=== PATIENT | male | born 1985 | race Caucasian/White ===

== ENCOUNTER 2023-06-06 02:16 | Observation (INO) | payer MEDICAID, SELFPAY ==
[2023-06-06] VITALS (19 sets, daily range): BP systolic 104–123; BP diastolic 64–91; PULSE 56–79; RESP 11–20; TEMP 36.7–36.8; O2SAT 79–98; BMI 38.3; BMI 39.3
--- NOTE | 2023-06-06 02:31 | ED_ITS ---
HPI - Overdose General Chief Complaint: Overdose Stated Complaint: SUICIDAL Time Seen by Provider: 06/06/23 02:27 History of Present Illness HPI Narrative: patient presents after overdose. 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 States he became upset because his female partner did not come home with him tonight. Denies past episodes of suicide. Still feels suicidal. complaint: Reports intentional overdose Onset (ago): hour(s) Related Data Home Medications Medication Instructions Recorded Confirmed dulaglutide 0.75 mg/0.5 mL 0.75 mg subcut .weekly 06/06/23 06/06/23 subcutaneous pen injector (Trulicity) escitalopram oxalate 10 mg tablet 10 mg PO DAILY 06/06/23 06/06/23 losartan 100 mg tablet 100 mg PO DAILY 06/06/23 06/06/23 metformin 500 mg tablet,extended 500 mg PO DAILY 06/06/23 06/06/23 release 24 hr metoprolol tartrate 50 mg tablet 50 mg PO Q12H 06/06/23 06/06/23 Allergies Allergy/AdvReac Type Severity Reaction Status Date / Time propoxyphene Allergy Unknown Verified 06/06/23 02:25 [From Tacho] Review of Systems ROS Status of ROS 10 or more systems reviewed and unremarkable except as noted in history and below PFSH PFSH Social History Smoking status: Former smoker Exam Constitutional Vital Signs, click to edit/add: Last Vital Signs Pulse 71 06/06/23 03:20 Resp 15 06/06/23 03:20 BP 123/91 H 06/06/23 02:18 Pulse Ox 79 L 06/06/23 03:20 O2 Del Method Room Air 06/06/23 02:18 Common normals: no apparent distress, average body habitus, oriented x3, no limitations, healthy appearing and alert Eye Common normals: PERRL, EOMs intact bilaterally and conjunctivae normal Respiratory Common normals: normal respiratory effort, no retractions, no use of accessory muscles and clear to auscultation bilaterally Cardio Common normals: regular rate, regular rhythm, S1 normal heart sound and S2 normal heart sound GI Common normals: Normal to inspection, nondistended, normoactive bowel sounds p resent, soft to palpation and non-tender Extremity Common normals: normal to inspection, full ROM and normal capillary refill Neuro Common normals: oriented x3, CN's II-XII intact bilaterally, moves all extremities and no focal motor deficits Psych Appearance: grossly normal Course Vital Signs Vital signs: Vital Signs Pulse Rate 78 06/06/23 02:18 Respiratory Rate 16 06/06/23 02:18 Blood Pressure 123/91 H 06/06/23 02:18 Pulse Oximetry 96 06/06/23 02:18 Oxygen Delivery Method Room Air 06/06/23 02:18 Pulse Rate 71 06/06/23 03:20 Respiratory Rate 15 06/06/23 03:20 Blood Pressure 123/91 H 06/06/23 02:18 Pulse Oximetry 79 L 06/06/23 03:20 Oxygen Delivery Method Room Air 06/06/23 02:18 MDM - Overdose MDM Narrative Medical decision making narrative: patient presents after he alledgedly overdosed on over 100 50mg metoprolol pills because he was upset his did not come home with him. They were at a libertarian together. he was also drinking and she was reportedly not happy about this. His EKG demonstrates NSR with rate 63 on arrival . 2:45 minutes later his heart rate is 74 on the monitor. WBC, BMP are normal. Discussed with poison control who recommends observation for 6-8 hours. Discussed with the hospitalist who accepts the patient for observation admission. Patient will need mental health evaluation once he is cleared medically Lab Data Labs: Lab Results 06/06/23 Range/Units 02:30 WBC 7.2 (4.0-11.0) 10^3/uL RBC 7.01 H (4.70-6.10) 10^6/uL Hgb 13.6 L (14.0-18.0) g/dL Hct 43.8 (42.0-54.0) % MCV 62.5 L (80.0-94.0) fL MCH 19.4 L (25.9-34.0) pg MCHC 31.1 (29.9-35.2) g/dL RDW 19.9 H (11.0-15.0) % Plt Count 288 (150-450) 10^3/uL MPV 9.4 L (9.5-13.5) fL Neut % (Auto) 40.9 L (43.0-75.0) % Lymph % (Auto) 45.2 (20.5-60.0) % [place] % (Auto) 8.2 (1.7-12.0) % Eos % (Auto) 3.9 (0.9-7.0) % Baso % (Auto) 1.0 (0.2-2.0) % Neut # (Auto) 2.9 (1.4-6.5) 10^3/uL Lymph # (Auto) 3.3 (1.2-3.8) 10^3/uL [place] # (Auto) 0.6 (0.3-0.8) 10^3/uL Eos # (Auto) 0.3 (0.0-0.7) 10^3/uL Baso # (Auto) 0.1 (0.0-0.1) 10^3/uL Abs Immat Gran (auto) 0.06 H (0.00-0.03) 10^3/uL Imm/Tot Granulo (auto) 0.8 H (0.0-0.5) % Sodium 137 (136-145) mmol/L Potassium 3.6 (3.5-5.1) mmol/L Chloride 100 (98-107) mmol/L Carbon Dioxide 27.3 (21.0-32.0) mmol/L Anion Gap 13.3 BUN 12.0 (7.0-18.0) mg/dL Creatinine 1.05 (0.70-1.30) mg/dL Est GFR ( Amer) >60 (>=60) Est GFR (Non-Af Amer) >60 (>=60) BUN/Creatinine Ratio 11.4 Glucose 216 H (74-106) mg/dL Lactate 1.7 (0.4-2.0) mmol/L Calcium 8.6 (8.5-10.1) mg/dL Total Bilirubin 0.7 (0.2-1.0) mg/dL AST <5 L (15-37) U/L ALT <6 L (16-63) U/L Alkaline Phosphatase 91 (46-116) U/L Total Protein 7.9 (6.4-8.2) g/dL Albumin <3.4 L (3.4-5.0) g/dL Globulin 4.5 g/dL Albumin/Globulin Ratio 0.8 Salicylates <2.8 (<=19.9) mg/dL Acetaminophen <2.0 L (10.0-30.0) ug/mL Ethanol Quant 198 mg/dL Discharge Plan Discharge Chief Complaint: Overdose Clinical Impression: Drug overdose, Suicide attempt Patient Disposition: Admitted as Observation Prescriptions / Home Meds: No Action metoprolol tartrate 50 mg tablet 50 mg PO Q12H losartan 100 mg tablet 100 mg PO DAILY metformin 500 mg tablet extended release 24 hr 500 mg PO DAILY escitalopram oxalate 10 mg tablet 10 mg PO DAILY Trulicity 0.75 mg/0.5 mL pen injector 0.75 mg SUBCUT .weekly Referrals: KIMBERLY CRAIG [Primary Care Provider] - 1 week
--- NOTE | 2023-06-06 02:37 | ECG_ITS ---
[facility] Test Date: 2023-06-06 Pat Name: JENN HOLDEN Department: Room: - Gender: Male Jailer: : 1985 Requested By: KIMBERLY CRAIG Order Number: [id number] Reading MD: MOON SANDOVAL Measurements Intervals [place] Rate: 78 P: 49 NM: 186 QRS: 83 QRSD: 92 T: 30 QT: 368 QTc: 402 Interpretive Statements 1100 Sinus rhythm 9110 normal ECG No previous ECG available for comparison Electronically Signed On 06-06-2023 18:08:28 EDT by MOON SANDOVAL
[2023-06-06] MEDS: 0.9 % SODIUM CHLORIDE 1,000 ML 999 ML IV (02:40)
[2023-06-06 02:43] LABS: Basophils Absolute Auto 0.1 10^3/uL (0.0-0.1); Eosinophils Absolute Auto 0.3 10^3/uL (0.0-0.7); Eosinophils Percent Auto 3.9 % (0.9-7.0); Hematocrit 43.8 % (42.0-54.0); Hemoglobin 13.6 g/dL (14.0-18.0); Immature Granulocytes Abs Auto 0.06 10^3/uL (0.00-0.03); Immature Granulocytes Pct Auto 0.8 % (0.0-0.5); Lymphocytes Absolute Auto 3.3 10^3/uL (1.2-3.8); Lymphocytes Percent Auto 45.2 % (20.5-60.0); Mean Corpuscular HGB Conc 31.1 g/dL (29.9-35.2); Mean Corpuscular Hemoglobin 19.4 pg (25.9-34.0); Mean Corpuscular Volume 62.5 fL (80.0-94.0); Mean Platelet Volume 9.4 fL (9.5-13.5); Monocytes Absolute Auto 0.6 10^3/uL (0.3-0.8); Monocytes Percent Auto 8.2 % (1.7-12.0); Neutrophils Absolute Auto 2.9 10^3/uL (1.4-6.5); Neutrophils Percent Auto 40.9 % (43.0-75.0); Platelet Count 288 10^3/uL (150-450); Red Blood Count 7.01 10^6/uL (4.70-6.10); Red Cell Distribution Width 19.9 % (11.0-15.0); White Blood Count 7.2 10^3/uL (4.0-11.0)
[2023-06-06 02:53] LABS: Ethanol 198 mg/dL; Salicylate <2.8 mg/dL (<=19.9)
[2023-06-06 02:55] LABS: Acetaminophen <2.0 ug/mL (10.0-30.0)
[2023-06-06 02:58] LABS: Lactate/Lactic Acid 1.7 mmol/L (0.4-2.0)
[2023-06-06 03:04] LABS: Alanine Aminotransferase <6 U/L (16-63); Alkaline Phosphatase 91 U/L (46-116); Anion Gap 13.3; Aspartate Amino Transferase <5 U/L (15-37); BUN Creatinine Ratio 11.4; Bilirubin Total 0.7 mg/dL (0.2-1.0); Calcium 8.6 mg/dL (8.5-10.1); Carbon Dioxide 27.3 mmol/L (21.0-32.0); Chloride 100 mmol/L (98-107); Estimated GFR (African America >60 (>=60); Estimated GFR (Non-African Ame >60 (>=60); Glucose 216 mg/dL (74-106); Potassium 3.6 mmol/L (3.5-5.1); Sodium 137 mmol/L (136-145); Total Protein 7.9 g/dL (6.4-8.2)
[2023-06-06 03:05] LABS: Albumin Globulin Ratio 0.8; Albumin Level <3.4 g/dL (3.4-5.0); Globulin 4.5 g/dL
--- NOTE | 2023-06-06 03:29 | PC.NURSE ---
poison control called at 0214after EMS report. Patient took 100 25mg metoprolol 1 hour ago. Patient also had alcohol. Poison control advised to give charcoal if patient was alert and oriented, dont give if patient has MANAGER EQUITY depression. Labs recommendations were Acetaminophen, salicylate, etoh, UA drug screen, CMP, Hepatic function. EKG with continuous monitoring. Assess for hypotension, bradycardia, MANAGER EQUITY depression. Dr. Ortiz made aware. 0311 called poison control to give patient name, , and med list. They said they would check in in about an hour to get lab results.
--- NOTE | 2023-06-06 04:53 | PC.NURSE ---
Talked with poison control. States needs to observe for 6-8 hours. If he remains stable he can then speak withpsych. r aware
[2023-06-06 05:37] LABS: Basophils Absolute Auto 0.1 10^3/uL (0.0-0.1); Basophils Percent Auto 1.1 % (0.2-2.0); Eosinophils Absolute Auto 0.2 10^3/uL (0.0-0.7); Eosinophils Percent Auto 2.7 % (0.9-7.0); Hematocrit 39.1 % (42.0-54.0); Hemoglobin 12.3 g/dL (14.0-18.0); Immature Granulocytes Abs Auto 0.08 10^3/uL (0.00-0.03); Immature Granulocytes Pct Auto 1.2 % (0.0-0.5); Lymphocytes Absolute Auto 2.8 10^3/uL (1.2-3.8); Lymphocytes Percent Auto 41.9 % (20.5-60.0); Mean Corpuscular HGB Conc 31.5 g/dL (29.9-35.2); Mean Corpuscular Hemoglobin 19.9 pg (25.9-34.0); Mean Corpuscular Volume 63.2 fL (80.0-94.0); Mean Platelet Volume 9.4 fL (9.5-13.5); Monocytes Absolute Auto 0.5 10^3/uL (0.3-0.8); Monocytes Percent Auto 8.2 % (1.7-12.0); Neutrophils Percent Auto 44.9 % (43.0-75.0); Platelet Count 258 10^3/uL (150-450); Red Blood Count 6.19 10^6/uL (4.70-6.10); Red Cell Distribution Width 19.3 % (11.0-15.0); White Blood Count 6.6 10^3/uL (4.0-11.0)
[2023-06-06 05:49] LABS: Anion Gap 13.7; BUN Creatinine Ratio 11.7; Calcium 7.9 mg/dL (8.5-10.1); Chloride 105 mmol/L (98-107); Estimated GFR (African America >60 (>=60); Estimated GFR (Non-African Ame >60 (>=60); Glucose 242 mg/dL (74-106); Potassium 3.7 mmol/L (3.5-5.1); Sodium 139 mmol/L (136-145)
[2023-06-06] MEDS: LACTATED RINGER'S SOLUTION 1,000 ML 125 ML IV (06:46)
--- NOTE | 2023-06-06 08:10 | ECG_ITS ---
[facility] Test Date: 2023-06-06 Pat Name: JENN HOLDEN Department: Room: Gender: Male Import Export Manager: : 1985 Requested By: KIMBERLY CRAIG Order Number: [id number] Reading MD: MOON SANDOVAL Measurements Intervals [place] Rate: 69 P: 48 NC: 191 QRS: 69 QRSD: 94 T: 33 QT: 395 QTc: 424 Interpretive Statements SINUS RHYTHM Compared to ECG 06/06/2023 02:21:33 No significant changes Electronically Signed On 06-06-2023 18:09:03 EDT by MOON SANDOVAL
[2023-06-06] MEDS: ESCITALOPRAM 10 MG TABLET PO (09:18)
[2023-06-06] MEDS: ENOXAPARIN SODIUM 40 MG/0.4 ML SYRINGE SUBQ (09:18)
[2023-06-06 12:33] LABS: Amphetamine Screen Urine NEGATIVE (NEGATIVE); Benzodiazepines Screen Urine NEGATIVE (NEGATIVE); Cannabinoid Screen Urine NEGATIVE (NEGATIVE); Cocaine Screen Urine NEGATIVE (NEGATIVE); Methamphetamines Screen Urine NEGATIVE (NEGATIVE); Opiate Screen Urine NEGATIVE (NEGATIVE); Phencyclidine Screen Urine NEGATIVE (NEGATIVE); Tricyclic Antidepressant Urine NEGATIVE (NEGATIVE)
[2023-06-06 12:34] LABS: Barbiturates Screen Urine NEGATIVE (NEGATIVE); Buprenorphine Screen Urine NEGATIVE (NEGATIVE); Methadone Screen Urine NEGATIVE (NEGATIVE); Oxycodone Screen Urine NEGATIVE (NEGATIVE)
--- NOTE | 2023-06-06 13:47 | PM.HP ---
H&P: HPI History of Present Illness Chief complaint: Intentional overdose Narrative: HPI and Hospital Course: 37 y o male with no prior hx of suicide attempt came in after intentional overdose of his BB. He took about 100 pills of 50 mg Toprol that was prescribed for his HTN. He was admitted for observation and denies any active symptoms. Rest of his w/u is pretty unremarkable with no sig sig abnormality on CBC, CMP, EKG. He had normal tylenol/salicylate levels and negative UDS. He denies prior hx of MDD or suicide attempt. He is currently on Lexapro for SERENA and been using it for 2 years now. Poison control was contacted by ED and patient was recommended to be be monitor for 6-8 hours for clinical deterioration. Vitals are stable. Stable from medical pov for discharge. Will need to go to inpatient psych unit to ensure he is not at risk of self harm with recent intentional overdose. Admission Diagnosis: Intentional overdose of Beta albertina HTN T2 DM SERENA Alcohol abuse disorder Discharge Diagnosis as above Discharge status medically stable Review of Systems ROS Status of ROS 10 or more systems reviewed and unremarkable except as noted in history and below [facility] Medical History (Updated 06/06/23 @ 14:02 by Shaikh Eduardo MD) Surgical History Family History Mother Family history of CHF (congestive heart failure) Family history of diabetes mellitus Family history of hypertension Father Family history of cancer Social History Within the past year, how often did you have a drink containing alcohol: 4 or more times a week Within the past year, how many standard drinks containing alcohol did you have on a typical day: 10 or more Within the past year, how often did you have six or more drinks on one occasion: daily or almost daily Total score: 12 Score interpretation: A score of 4 or more indicates drinking is likely to affect patient's safety. Smoking status: Former smoker Non-prescribed substance use: denies use Previous occupational history: none Highest level of school completed/degree received: high school graduate Are you now , , , , never or living with a partner: living with partner In a typical week, how many times do you talk on the telephone with family, friends, or neighbors: 3 or more times per week How often do you get together with friends or relatives: 3 or more times per week How often do you attend congregational or zoroastrianism services: never Do you belong to any clubs or organizations such as congregational groups unions, fraternal or athletic groups, or school groups: no Total score: 2 Score interpretation: A score of greater than or equal to 2 indicates the lowest level of social isolation. Little interest or pleasure in doing things: not at all Feeling down, depressed, or hopeless: not at all Feel stressed/tense/nervous/anxious/difficulty sleeping: not at all Do you think of yourself as: straight/heterosexual Gender Identity: male Meds Home Medications and Allergies Home Medications Medication Instructions Recorded Confirmed Type dulaglutide 0.75 mg/0.5 mL 0.75 mg subcut .weekly 06/06/23 06/06/23 History subcutaneous pen injector (Trulicity) escitalopram oxalate 10 mg tablet 10 mg PO DAILY 06/06/23 06/06/23 History losartan 100 mg tablet 100 mg PO DAILY 06/06/23 06/06/23 History metformin 500 mg tablet,extended 500 mg PO DAILY 06/06/23 06/06/23 History release 24 hr metoprolol tartrate 50 mg tablet 50 mg PO Q12H 06/06/23 06/06/23 History Allergies Allergy/AdvReac Type Severity Reaction Status Date / Time propoxyphene Allergy Unknown Verified 06/06/23 02:25 [From Tacho] Exam Constitutional Vital Signs, click to edit/add: Last Vital Signs Temp 98.1 F 06/06/23 08:27 Pulse 70 06/06/23 11:54 Resp 16 06/06/23 08:27 BP 104/64 06/06/23 08:27 Pulse Ox 98 06/06/23 08:27 O2 Del Method Room Air 06/06/23 08:27 O2 Flow Rate 2 06/06/23 06:14 Documenting provider has reviewed patient's vital signs: yes Common normals: no apparent distress Nutritional appearance: obese HENMT Common normals: normocephalic and head/scalp atraumatic Respiratory Common normals: normal respiratory effort, no retractions, no use of accessory muscles and clear to auscultation bilaterally Effort & inspection: able to speak in complete sentences GI Common normals: Normal to inspection, nondistended, normoactive bowel sounds present, soft to palpation, non-tender and no hepatosplenomegaly Extremity Common normals: normal to inspection and full ROM Neuro Common normals: oriented x3, CN's II-XII intact bilaterally, moves all extremities, no focal motor deficits and no sensory deficits noted Psych Common normals: mental status grossly normal, thought process normal, cooperative, speech normal, activity/motor behavior normal, denies hallucinations and denies homicidal ideation Other: reports passive suicidal ideation Results Labs Labs: Short CBC 06/06/23 06/06/23 Range/Units 02:30 05:33 WBC 7.2 6.6 (4.0-11.0) 10^3/uL Hgb 13.6 L 12.3 L (14.0-18.0) g/dL Hct 43.8 39.1 L (42.0-54.0) % Plt Count 288 258 (150-450) 10^3/uL BMP 06/06/23 06/06/23 02:30 05:33 Sodium 137 139 Potassium 3.6 3.7 Chloride 100 105 Carbon Dioxide 27.3 24.0 BUN 12.0 11.0 Creatinine 1.05 0.94 Glucose 216 H 242 H Calcium 8.6 7.9 L Liver Function 06/06/23 Range/Units 02:30 Total Bilirubin 0.7 (0.2-1.0) mg/dL AST <5 L (15-37) U/L ALT <6 L (16-63) U/L Alkaline Phosphatase 91 (46-116) U/L Albumin <3.4 L (3.4-5.0) g/dL Assessment and Plan Assessment and Plan (1) Suicide attempt: Assessment and Plan: Intentional overdose with oral BB. Medically cleared for d/c Patient will need inpatient psych evaluation to ensure he is not at risk of self harm . (2) Alcohol abuse: Assessment and Plan: drinks about 12 cans of beers daily. No prior hx of alcohol withdrawal. Last drink was last night. No signs and symptoms of withdrawal on evaluation. Pt educated on alcohol abuse. He was receptive to counseling/education and agreed to d/w his PCP (3) Type 2 diabetes mellitus: Assessment and Plan: C/w current regimen. Outpatient f/u (4) High blood pressure: Assessment and Plan: Hold BB for now. C/w losartan if BP above goal. Outpatient f/u (5) SERENA (generalized anxiety disorder): Assessment and Plan: on Lexapro. No recent changes in meds. (6) Microcytic anemia: Assessment and Plan: Mild anemia with microcytosis. Likely iron deficiency anemia. Will need outpatient w/u. Defer w.u to PCP when he follows up as outpatient.
--- NOTE | 2023-06-06 18:12 | PC.NURSE ---
Crime Analyst took call from Aliyah with [facility]. Patient to transfer to [facility] 1 south room 13, bed 2. Dr Rojo accepting physician for major depressive disorder. Our facility nurse to call report to [facility] nurse. Transport to arrive at this facility within the hour
== END 2023-06-06 18:48 ==
LOC: ER 05:26 → MS 06:10
PROVIDERS: Internal Medicine; Admitting Provider Internal Medicine; Emergency Provider Internal Medicine; PCP Family Medicine; Visit Provider Internal Medicine
DX: T44.7X2A Poisoning by beta-adrenoreceptor antagonists, intentional self-harm, initial encounter (principal); I10 Essential (primary) hypertension; E11.9 Type 2 diabetes mellitus without complications; F41.1 Generalized anxiety disorder; F10.10 Alcohol abuse, uncomplicated; Z87.891 Personal history of nicotine dependence; Z79.899 Other long term (current) drug therapy; Z79.84 Long term (current) use of oral hypoglycemic drugs
CPT/HCPCS: 36415; 80048; 80053; 80179; 80307; 80320; 80329; 83605; 85025; 93005; 96372; 99285; G0378